=== PATIENT | male | born 1945 | race Two or more races ===

== ENCOUNTER 2017-07-17 12:33 | Outpatient (CLI) | payer OTHER | END 2017-07-17 12:37 | disposition home or self-care (01) | LOC: RAD 12:33 | DX: I10 Essential (primary) hypertension (principal) ==

== ENCOUNTER 2017-08-08 09:25 | Outpatient (CLI) | payer OTHER | END 2017-08-08 18:00 | disposition home or self-care (01) | LOC: TOM 09:25 | DX: R91.1 Solitary pulmonary nodule (principal) ==

== ENCOUNTER 2017-11-16 10:28 | Outpatient (CLI) | payer OTHER | END 2017-11-16 14:24 | disposition home or self-care (01) | LOC: NUCLEAR 10:28 | DX: I20.1 Angina pectoris with documented spasm (principal) ==

== ENCOUNTER 2022-10-03 08:49 | Outpatient (CLI) | payer OTHER | END 2022-10-03 08:50 | disposition home or self-care (01) | LOC: NUCLEAR 08:49 | PROVIDERS: ATTEND Internal Medicine Cardiovascular Disease | DX: I20.1 Angina pectoris with documented spasm (principal) | CPT/HCPCS: 78452; 93017; A9500; J0153 ==